=== PATIENT | female | born 1995 | race Caucasian/White ===

== ENCOUNTER 2017-09-08 14:00 | Emergency (ER) | payer OTHER ==
--- NOTE | 2017-09-08 15:06 | PD ---
HPI Chief Complaint Decreased movement Date Seen: Sep 08, 2017 Time Seen: 15:02 Travel History International Travel<30 Days: No Contact w/Intl Traveler<30Days: No Known Affected Area: No History of Present Illness HPI 21-year-old primigravida at 24 weeks gestation who reports no movement for the last 24 hours. She denies bleeding, leakage of fluid or abdominal pain. History Past Medical History Medical History: Denies Significant Hx Obstetric History Obstetric History Primigravida This complicated by first and second trimester bleeding Past Surgical History Surgical History: No Previous Surgery Family History Family History: Negative Social History Alcohol Use: No Tobacco Use: No Substance Abuse: No Review of Systems Except as stated in HPI: all other systems reviewed are Neg Physical Exam Narrative GENERAL: Well-nourished, well-developed patient. SKIN: Warm and dry. HEAD: Normocephalic and atraumatic. EYES: No scleral icterus. No injection or drainage. ENT: No nasal drainage noted. Mucous membranes pink. Airway patent. NECK: Supple, trachea midline. No JVD. CARDIOVASCULAR: Regular rate and rhythm without murmurs, gallops, or rubs. RESPIRATORY: Breath sounds equal bilaterally. No accessory muscle use. ABDOMEN/GI: Abdomen soft, non-tender, bowel sounds present, no rebound, no guarding Gravid to [-] weeks size Fundal Height: [-] GENITOURINARY: External Genitalia: intact and normal in appearance BUS glands: [-] Cervix: [-] Dilatation: [-] Effacement: [-] Station: [-] Presentation: [-] Membranes: [intact or ruptured] Uterine Contractions: [-] FHT's: Category: [-] Baseline: [145-] Reactive: [-] Variability: [mod-] Decels: [-] EXTREMITIES: No cyanosis or edema. BACK: Nontender without obvious deformity. No CVA tenderness. NEUROLOGICAL: Awake and alert. Motor and sensory grossly within normal limits. Five out of 5 muscle strength in all muscle groups. Normal speech. Data Data Vital Signs Reviewed: Yes MDM Medical Record Reviewed: Yes Narrative Course / MDM Assessment: 24 week intrauterine with decreased movement but reassuring heart rate Plan: Follow-up as needed. Diagnosis Diagnosis: Primary Impression: 24 weeks gestation of Additional Impression: Decreased movement affecting management of in second trimester Disposition: 01 DISCHARGE HOME Condition: Good Cristian Davis MD Sep 08, 2017 15:06
== END 2017-09-08 15:18 | disposition home or self-care (01) ==
LOC: HOBED 14:00
DX: O36.8130 Decreased fetal movements, third trimester, not applicable or unspecified (principal); Z3A.24 24 weeks gestation of pregnancy
CPT/HCPCS: 99282

== ENCOUNTER 2017-12-24 17:05 | Inpatient (IN) ==
[2017-12-24] MEDS ORDERED: Citric Acid/Sodium Citrate Liq 30 ML UDC PO SCH (17:30)
--- NOTE | 2017-12-24 17:36 | P.HPOB ---
History of Present Illness Primary Care Physician: NOT REQUIRED Dr. Peng Chief Complaint: Spotting and cramping History of Present Illness: Patient is 22-year-old white female at 39 weeks who sees the [facility] clinic and Dr. Peng and she is currently breech presentation scheduled for tomorrow but is coming today for cramping and spotting. Her NST is reactive she is having occasional contraction ultrasound in OB ED confirms breech presentation Weeks Gestation:: 39 Para: 0 : 1 Review of Systems Constitutional: Denies anorexia, Denies body ache(s), Denies chills, Denies daytime sleepiness, Denies excessive sweating, Denies fatigue, Denies fever(s), Denies headache(s), Denies increased appetite, Denies lack of energy, Denies malaise, Denies night sweats, Denies weakness, Denies weight gain, Denies weight loss, Denies other Cardiovascular: Denies bluish discoloration of hand/feet, Denies chest pain, Denies chest pain at rest, Denies chest pain with activity, Denies excessive sweating, Denies fainting, Denies fast heart rate, Denies foot swelling, Denies generalized swelling, Denies irregular heart rhythm, Denies leg pain with activity, Denies leg sores, Denies leg swelling, Denies lightheadedness, Denies radiating jaw, neck or arm pain, Denies rapid, pounding, or irregular heartbeat , Denies shortness of breath, Denies shortness of breath with activity, Denies shortness of breath when lying down, Denies shortness of breath causing sudden awakening, Denies slow heart rate, Denies other Respiratory: Denies change in phlegm color, Denies chest congestion, Denies cough, Denies coughing up blood, Denies excessive phlegm production, Denies pain on inspiration, Denies pain with cough, Denies shortness of breath, Denies shortness of breath with activity, Denies snoring, Denies stridor, Denies wheezing, Denies other Gastrointestinal: Reports abdominal pain, Denies belching, Denies black, tarry stools, Denies bloating, Denies bright, red blood in stools, Denies change in bowel habits, Denies constant urge to pass stool, Denies change in stools, Denies coffee ground vomit, Denies constipation, Denies cramping, Denies difficulty swallowing, Denies excessive passing of gas, Denies feeling full early, Denies heartburn, Denies incontinent of stools, Denies loose stools, Denies nausea, Denies pain with swallowing, Denies vomiting, Denies vomiting blood, Denies other Genitourinary: Reports abnormal vaginal bleeding, Denies abnormal periods, Denies absent period, Denies bleeding between periods, Denies blood in urine, Denies difficulty starting urination, Denies difficulty urinating, Denies dribbling after urination, Denies frequent nighttime urination, Denies genital itching, Denies genital lesions, Denies heavy periods, Denies hot flashes, Denies light periods, Denies nipple discharge, Denies painful intercourse, Denies painful periods, Denies painful urination, Denies pelvic pain, Denies prolapse symptoms, Denies sexual problems, Denies side pain, Denies urinary incontinence, Denies urinary urgency, Denies vaginal discharge, Denies vaginal dryness, Denies vaginal odor, Denies vaginal itching, Denies other Neurologic: Denies abnormal hearing, Denies abnormal movements, Denies abnormal speech, Denies abnormal walking, Denies behavioral changes, Denies burning sensations, Denies confusion, Denies dizziness, Denies fainting, Denies frequent falls, Denies headache(s), Denies lack of coordination, Denies localized weakness, Denies loss of vision, Denies memory loss, Denies numbness, Denies other visual disturbances, Denies radiating pain, Denies restless legs, Denies convulsions, Denies seizure-like activity, Denies sensory deficit, Denies tingling, Denies tingling/numbness/burning sensations, Denies tremor(s), Denies unsteadiness, Denies weakness, Denies other Hematologic/Lymphatic: Denies easy bleeding, Denies easy bruising, Denies enlarged lymph nodes, Denies other PMFSH - Tobacco History Second Hand Smoke Exposure: No Smoking Status: Never smoker - Alcohol History How Often Do You Have a Drink Containing Alcohol: Never - Substance Use History Substance History: No History of Abuse - Travel History History of Recent Travel: No Recent Travel in the [facility] Within the Last 8 Weeks: No Recent Travel Out of the Country Within the Last 8 Weeks: No Medications and Allergies Allergies Allergy/AdvReac Type Severity Reaction Status Date / Time No Known Allergies Allergy Unverified 12/24/17 17:14 Home Medications Medication Instructions Recorded Confirmed Type + DHA 11/09/17 History Exam Vital signs: Vital Signs 12/24/17 17:23 Temperature 99.3 F Respiratory Rate 18 Intake & Output 12/23/17 12/24/17 12/24/17 18:59 06:59 18:59 Weight 74.389 kg Narrative: GENERAL: Well-nourished, well-developed patient. SKIN: Warm and dry. HEAD: Normocephalic and atraumatic. EYES: No scleral icterus. No injection or drainage. ENT: No nasal drainage noted. Mucous membranes pink. Airway patent. NECK: Supple, trachea midline. No JVD. CARDIOVASCULAR: Regular rate and rhythm without murmurs, gallops, or rubs. RESPIRATORY: Breath sounds equal bilaterally. No accessory muscle use. BREASTS: Bilateral exam showed no masses , no retractions, no nipple discharge. ABDOMEN/GI: Abdomen soft, non-tender, bowel sounds present, no rebound, no guarding Gravid to [39-] weeks size Fundal Height: [38-] GENITOURINARY: External Genitalia: intact and normal in appearance BUS glands: [-] Cervix: [Posterior-] Dilatation: [-3] Effacement: [50-] Station: [-3] Presentation: [Breech-] Membranes: [intact ] Uterine Contractions: [Irregular-] FHT's: Category: [1-] Baseline: [133] Reactive: [-R] Variability: [-mod] Decels: [-] EXTREMITIES: No cyanosis or edema. BACK: Nontender without obvious deformity. No CVA tenderness. NEUROLOGICAL: Awake and alert. Motor and sensory grossly within normal limits. Five out of 5 muscle strength in all muscle groups. Normal speech. - Constitutional no acute distress - Routine HEENT Exam Head: Present: normocephalic, atraumatic Results - Imaging Bedside ultrasound confirms breech presentation Caprini VTE Risk Assessment Caprini VTE Risk Assessment: No/Low Risk (score <= 1) Caprini Risk Assessment Model: Point Value = 1 Point Value = 2 Point Value = 3 Point Value = 5 Age 41-60 Minor surgery BMI > 25 kg/m2 Swollen legs Varicose veins or History of unexplained or recurrent spontaneous Oral contraceptives or hormone replacement Sepsis (< 1 month) Serious lung disease, including pneumonia (< 1 month) Abnormal pulmonary function Acute myocardial infarction Congestive heart failure (< 1 month) History of inflammatory bowel disease Medical patient at bed rest Age 61-74 Arthroscopic surgery Major open surgery (> 45 min) Laparoscopic surgery (> 45 min) Malignancy Confined to bed (> 72 hours) Immobilizing plaster cast Central venous access Age >= 75 History of VTE Family history of VTE Factor V Leiden Prothrombin [id number] Lupus anticoagulant Anticardiolipin antibodies Elevated serum homocysteine Heparin-induced thrombocytopenia Other congenital or acquired thrombophilia Stroke (< 1 month) Elective arthroplasty Hip, pelvis, or leg fracture Acute spinal cord injury (< 1 month) Prophylaxis Regimen: Total Risk Factor Score Risk Level Prophylaxis Regimen 0-1 Low Early ambulation 2 Moderate Order ONE of the following: *Sequential Compression Device (SCD) *Heparin 5000 units SQ BID 3-4 Higher Order ONE of the following medications: *Heparin 5000 units SQ TID *Enoxaparin/Lovenox 40 mg SQ daily (WT < 150 kg, CrCl > 30 mL/min) *Enoxaparin/Lovenox 30 mg SQ daily (WT < 150 kg, CrCl > 10-29 mL/min) *Enoxaparin/Lovenox 30 mg SQ BID (WT < 150 kg, CrCl > 30 mL/min) AND/OR *Sequential Compression Device (SCD) 5 or more Highest Order ONE of the following medications: *Heparin 5000 units SQ TID (Preferred with Epidurals) *Enoxaparin/Lovenox 40 mg SQ daily (WT < 150 kg, CrCl > 30 mL/min) *Enoxaparin/Lovenox 30 mg SQ daily (WT < 150 kg, CrCl > 10-29 mL/min) *Enoxaparin/Lovenox 30 mg SQ BID (WT < 150 kg, CrCl > 30 mL/min) AND *Sequential Compression Device (SCD) Assessment and Plan - Diagnosis (1) 39 weeks gestation of Code(s): Z3A.39 - 39 weeks gestation of Status: Acute (2) Breech presentation Code(s): O32.1XX0 - Maternal care for breech presentation, not applicable or unspecified Status: Acute (3) Spotting affecting in third trimester Code(s): O26.853 - Spotting complicating , third trimester Status: Acute - Plan This primiparous patient at 39 weeks is breech presentation and having spotting and cramping. Her private OB physician wants to proceed with section for these conditions this evening will proceed
[2017-12-24 17:52] LABS: Baso % (Auto) 0.3 % (0.0-2.0); Hematocrit 34.7 % (35.0-46.0); Hemoglobin 11.6 gm/dL (11.6-15.3); Lymph # (Auto) 1.9 th/mm3 (1.0-4.8); Lymph % (Auto) 15.9 % (9.0-44.0); Mean Corpuscular HGB Conc 33.4 % (32.0-36.0); Mean Corpuscular Hemoglobin 29.7 pg (27.0-34.0); Mean Corpuscular Volume 89.1 fL (80.0-100.0); Mean Platelet Volume 9.3 fL (7.0-11.0); Mono # (Auto) 0.8 th/mm3 (0.0-0.9); Mono % (Auto) 6.5 % (0.0-8.0); Neut # (Auto) 9.3 th/mm3 (1.8-7.7); Neut % (Auto) 77.3 % (16.0-70.0); Platelet Count 260 th/mm3 (150-450); Red Blood Count 3.89 mil/mm3 (4.00-5.30); Red Cell Distribution Width 14.2 % (11.6-17.2); White Blood Count 12.1 th/mm3 (4.0-11.0)
[2017-12-24] MEDS ORDERED: Acetaminophen 325 MG Tablet PO PRN (17:58)
[2017-12-24] MEDS ORDERED: Oxytocin 30 Units/500ml Premix 30 UNITS/500 ML BAG IV.SIG ONE (17:58)
[2017-12-24] MEDS ORDERED: ceFAZolin Inj 2,000 MG in Sodium Chlor 0.9% Inj 80 ML IV.SIG SCH (18:00)
[2017-12-24] MEDS ORDERED: Morphine Sulfate PF Inj 5 MG/10 ML Ampul ONE (18:06)
[2017-12-24 18:07] LABS: Bilirubin,Urine Negative (Negative); Clarity,Urine Hazy (Clear); Color,Urine Straw (Yellw/Straw); Glucose,Urine (UA) Negative (Negative); Leukocyte Esterase,Urine Trace (Negative); Nitrite,Urine Negative (Negative); Specific Gravity,Urine 1.002 (1.002-1.035); Squamous Epithelial Cell,Urine 2 /hpf (0-5)
[2017-12-24 18:11] LABS: Amphetamine Screen,Urine Neg (Neg); Barbiturate Screen,Urine Neg (Neg); Cannabinoid Screen,Urine Neg (Neg); Cocaine Screen,Urine Neg (Neg)
[2017-12-24 18:12] LABS: Opiate Screen,Urine Neg (Neg)
[2017-12-24 18:39] LABS: Anion Gap 9 meq/L (5-15); Aspartate Aminotransferase 22 U/L (15-37); Blood Urea Nitrogen 7 mg/dL (7-18); Calcium 8.9 mg/dL (8.5-10.1); Carbon Dioxide 23.1 meq/L (21.0-32.0); Chloride 108 meq/L (98-107); Glomerular Filtration Rate Greater Than 89 mL/min (>89); Glucose,Random 83 mg/dL (74-106); Potassium 3.8 meq/L (3.5-5.1); Sodium 140 meq/L (136-145)
[2017-12-24 18:40] LABS: Alanine Aminotransferase 17 U/L (10-53)
[2017-12-24 18:42] LABS: Alkaline Phosphatase 110 U/L (45-117); Total Protein 7.3 g/dL (6.4-8.2)
--- NOTE | 2017-12-24 19:07 | P.OBDELI ---
Procedure Note Performed by: Cristian Arceo MD Procedure: Primary Low Transverse Section Indication for Delivery: malposition (footling breech) Informed Consent Obtained: For anesthesia, For procedure Confirmed Correct: Patient, Procedure, Site, Time-out taken Anesthesia: Spinal Medication Prior to Procedure: As documented in eMAR Monitoring During Procedure: Blood pressure monitoring, surveillance monitor, doppler, Pulse oximetry Urinary Catheter: Inserted using sterile technique, To dependent drainage Sterile Preparation: Duraprep, In usual fashion Position: Supine with wedge to right side, Supine with safety belt applied - Operative Features Skin Incision: Pfannenstiel Uterine Incision: Low transverse w/knife / scissors Membranes Ruptured: Artificially, Appearance of fluid (clear) Presentation: Breech Status of Infant: Viable, Cord blood, Umbilical cord, Nursery present, Resuscitation required Placenta Delivered: Intact Medications: Antibiotics, Oxytocin Estimated blood loss (mL): 650 Procedure Tolerated: Well Maternal Condition: Stable Baby Condition: Stable - : Female Infant Delivery Date: 12/24/17 Infant Delivery Time: 18:33 Weight: 3370 kg score (1 min): 6 score (5 min): 7
[2017-12-24 19:18] LABS: Cord Arterial Blood HCO3 22.9
--- NOTE | 2017-12-24 20:04 | MP ---
cc: Cristian Arceo MD DATE OF OPERATION: 12/24/2017 PREOPERATIVE DIAGNOSES: Term intrauterine , double footling breech, active labor unexplained vaginal bleeding, tachycardia. PROCEDURE PERFORMED: Primary low transverse section with breech extraction delivery of a female infant. POSTOPERATIVE DIAGNOSES: Term intrauterine , double footling breech, active labor unexplained vaginal bleeding, tachycardia. SURGEON: Cristian Arceo MD ANESTHESIA: Spinal. ESTIMATED BLOOD LOSS: 650 mL. DRAINS: Montoya to gravity. OPERATIVE FINDINGS: Female infant delivered by breech extraction. Clear fluid. No nuchal cord entanglement. Intact placenta. Apgars were 6 at one minute and 7 at five. Baby required minimal resuscitation by the NICU staff. INDICATIONS FOR PROCEDURE: The patient was scheduled previously for an elective primary section due to breech presentation on 10/24/2017. She presented with active labor and vaginal bleeding. Cervix was 3 cm. Contractions were irregular and moderate. tachycardia was documented and the patient's blood pressure was slightly elevated. The patient was elected for operative delivery by section. She received Ancef 2 grams prophylactically. PROCEDURE DESCRIPTION: The patient was taken to the operating room in stable condition. She underwent spinal anesthetic with good results. She had 2 grams of Ancef given IV. She was prepped and draped. Montoya was inserted by sterile technique. Sequentials were placed on the lower extremities for VTE prophylaxis. Timeout was conducted, agreed by all present in the room. The patient was prepped and draped. She had excellent pain control and was alert and awake throughout the procedure. A Pfannenstiel incision was utilized. It was carried through a slightly elliptical incision just above the pubic symphysis and carried through the skin and subcutaneous layers, identifying the fascia, and then scoring the fascia sharply in the midline and extending it sharply by elevating the fascia with Leonila clamps. The fascia was dissected from the rectus muscle. The muscle was in the midline. Peritoneum was entered sharply without difficulty. The incision was extended bluntly and then the bladder blade was placed over the pubic symphysis. A transverse incision was made in the lower uterine segment with reduction of the peritoneum underneath the bladder blade. Clear fluid was noted. Double footling breech identified. The was delivered without incident and then the cord was doubly clamped and cut. No delayed cord clamping was done. The was taken to the [facility] immediately by the nursery. A cord segment was obtained for cord blood gas. A cord sample was obtained for typing and then the placenta was removed intact with trailing membranes. The uterus was explored. There was no retained tissue. The uterus was rohan nicely. Hemostasis was excellent. The uterus was closed with a double layer. First was a running locking suture of 0 Monocryl, followed by a second imbricating suture of 0 Monocryl. The pelvis was irrigated. Any active bleeding, blood clot or fluid was retrieved and dried. Again, confirmation of hemostasis was noted and then the peritoneal layer was closed with a running suture of 2-0 Monocryl. The muscle bellies were reapproximated loosely in the midline with a mattress suture of 2-0 Monocryl. The fascia was then closed with 0 Vicryl in a good simple fashion with good result and then the subcutaneous space was dried, irrigated and observed for any active bleeding. Any small bleeding was cauterized with the Bovie and the space was reapproximated with a running suture of 2-0 Monocryl. Yoni were used to close the skin. Dressing was applied. The final counts were correct. The patient was stable. Infant was stable. MD MIRNA Colon/jason , 07:12 PM , 07:19 PM
[2017-12-24] MEDS ORDERED: Oxytocin 30 Units/500ml Premix 30 UNITS/500 ML BAG IV.SIG PRN (22:59)
[2017-12-25] MEDS ORDERED: Naloxone Inj 0.4 MG/ML Vial IV.PUSH PRN (02:42)
[2017-12-25 05:51] LABS: Baso % (Auto) 0.2 % (0.0-2.0); Hematocrit 29.2 % (35.0-46.0); Hemoglobin 9.7 gm/dL (11.6-15.3); Lymph # (Auto) 1.4 th/mm3 (1.0-4.8); Lymph % (Auto) 10.5 % (9.0-44.0); Mean Corpuscular HGB Conc 33.2 % (32.0-36.0); Mean Corpuscular Hemoglobin 29.9 pg (27.0-34.0); Mean Corpuscular Volume 89.9 fL (80.0-100.0); Mean Platelet Volume 9.4 fL (7.0-11.0); Mono # (Auto) 0.7 th/mm3 (0.0-0.9); Mono % (Auto) 4.8 % (0.0-8.0); Neut # (Auto) 11.6 th/mm3 (1.8-7.7); Neut % (Auto) 84.5 % (16.0-70.0); Platelet Count 189 th/mm3 (150-450); Red Blood Count 3.25 mil/mm3 (4.00-5.30); Red Cell Distribution Width 13.8 % (11.6-17.2); White Blood Count 13.7 th/mm3 (4.0-11.0)
--- NOTE | 2017-12-25 09:09 | P.PNOB ---
Subjective Post op day: 1 Interval history: s/p primary LTCD for breech/labor Objective Vital Signs/I&O: Vital Signs 12/24/17 17:23 12/24/17 17:25 12/24/17 17:56 Temperature 99.3 F Pulse Rate 114 H 112 H Respiratory Rate 18 Blood Pressure 160/79 H 137/82 12/24/17 19:23 12/24/17 19:40 12/24/17 19:55 Temperature 97.7 F 97.4 F L Pulse Rate 112 H 83 89 Respiratory Rate 20 20 18 Blood Pressure 130/60 125/65 119/56 L 12/24/17 20:10 12/24/17 21:25 12/25/17 00:00 Temperature 99.9 F H 99.6 F Pulse Rate 105 H 98 H 80 Respiratory Rate 18 18 18 Blood Pressure 129/74 139/75 150/82 H 12/25/17 03:58 12/25/17 08:00 Temperature 100.0 F H 98.5 F Pulse Rate 83 77 Respiratory Rate 18 18 Blood Pressure 144/78 H 128/75 Intake & Output 12/24/17 12/25/17 12/25/17 18:59 06:59 18:59 Weight 74.389 kg Result Diagrams: 12/25/17 05:06 12/24/17 17:30 Objective Remarks: Pt in NICU with . GENERAL: Well-nourished, well-developed patient. CARDIOVASCULAR: Regular rate and rhythm without murmurs, gallops, or rubs. RESPIRATORY: Breath sounds equal bilaterally. No accessory muscle use. ABDOMEN/GI: Abdomen soft, non-tender, bowel sounds present. Incision: bandage in place; clean & dry Fundus: Firm, non-tender at umbilicus. GENITOURINARY: Light to moderate bleeding. EXTREMITIES: No cyanosis or edema, non-tender, without signs of DVT. Medications and IVs: Active Medications Acetaminophen (Tylenol) 650 mg PO Q6H PRN PRN Reason: PAIN SCALE 1 TO 2 Citric Acid/Sodium Citrate (Sodium Citrate/Citric Acid Liq) 30 ml PO [employer] MACHIN[employer] TRACEY Stop: 12/28/17 17:29 Diphenhydramine HCl (Benadryl) 50 mg PO Q6H PRN PRN Reason: MILD TO MODERATE ITCHING Stop: 12/26/17 02:41 Diphenhydramine HCl (Benadryl Inj) 25 mg IV.PUSH Q6H PRN PRN Reason: MILD TO MODERATE ITCHING Stop: 12/26/17 02:41 Diphtheria/Pertussis/Tetanus Vacc (Boostrix Vaccine Inj) 0.5 ml IM .ONCE ONE Stop: 12/25/17 16:01 Cefazolin Sodium 2,000 mg/ (Sodium Chloride) 100 mls @ 200 mls/hr IV.SIG [employer] MACHINIST TRACEY Stop: 12/28/17 17:59 Lactated Ringer's (Lr 1000 Ml Inj) 1,000 mls @ 100 mls/hr IV.CONT .Q10H [facility] Stop: 12/25/17 18:58 Last Admin: 12/25/17 00:02 Dose: 100 mls/hr Oxytocin (Pitocin 30 Units/Ns 500 Ml Premix) 30 units in 500 mls @ 100 mls/hr IV.SIG UNSCH PRN PRN Reason: Heavy bleeding Ibuprofen (Motrin) 800 mg PO Q8H PRN PRN Reason: cramping Last Admin: 12/25/17 06:26 Dose: 800 mg Ketorolac Tromethamine (Toradol Inj) 30 mg IM Q6H PRN PRN Reason: SEE LABEL COMMENTS Measles/Mumps/Rubella Vaccine Live (M-M-R Ii Vaccine Inj) 0.5 ml SQ .ONCE ONE Stop: 12/25/17 16:01 Miscellaneous Information (Misc Nursing Information) 1 each OTHER UNSCH PRN PRN Reason: SEE LABEL COMMENTS Stop: 12/26/17 02:41 Miscellaneous Information ([facility] Nursing Information) 1 each OTHER UNSCH PRN PRN Reason: SEE LABEL COMMENTS Stop: 12/26/17 02:41 Naloxone HCl (Narcan Inj) 0.4 mg IV.PUSH UNSCH PRN PRN Reason: SEE LABEL COMMENTS Stop: 12/26/17 02:41 Ondansetron HCl (Zofran Inj) 4 mg IV.PUSH Q6H PRN PRN Reason: NAUSEA OR VOMITING Oxycodone/Acetaminophen (Percocet 5/325 Mg) 2 tab PO Q4H PRN PRN Reason: PAIN SCALE 6 TO 10 Oxycodone/Acetaminophen (Percocet 5/325 Mg) 1 tab PO Q4H PRN PRN Reason: PAIN SCALE 3 TO 5 Senna/Docusate Sodium (Diane-Colace) 2 tab PO Q12H PRN PRN Reason: CONSTIPATION Simethicone (Mylicon Chew) 80 mg PO QID PRN PRN Reason: FLATULENCE Sodium Chloride (Ns Flush) 2 ml IV.FLUSH BID TRACEY Last Admin: 12/25/17 01:30 Dose: Not Given Sodium Chloride (Ns Flush) 2 ml IV.FLUSH PRN PRN PRN Reason: FLUSH AFTER USING IV ACCESS Assessment and Plan - Diagnosis (1) S/P primary low transverse Code(s): Z98.891 - History of uterine scar from previous surgery Status: Acute (2) Breech presentation Code(s): O32.1XX0 - Maternal care for breech presentation, not applicable or unspecified Status: Acute - Plan POD#1 s/p primary LTCD with Dr. Arceo for footling breech in labor - routine PP/postop care, encourage shower, remove bandage, ambulate - infant in NICU for respiratory distress; pt visiting now - anticipate d/c in 1-2d Discharge Plannin-3d postop
[2017-12-25] MEDS ORDERED: Measles/Mumps/Rubella Vaccine Inj 0.5 ML Vial SQ ONE (16:00)
[2017-12-25] MEDS ORDERED: Diphtheria/Tetanus/Pertussis Vaccine Inj 0.5 ML Syringe IM ONE (16:00)
[2017-12-25] MEDS: Senna/Docusate Sodium 8.6/50 MG Tablet PO PRN (22:24)
--- NOTE | 2017-12-26 06:54 | P.PNOB ---
Subjective Post op day: 2 Interval history: doing well, ambulating, voiding without difficulty. Baby in nicu until tonight Objective Vital Signs/I&O: Vital Signs 12/25/17 08:00 12/25/17 12:15 12/25/17 20:00 Temperature 98.5 F 98.1 F 98.2 F Pulse Rate 77 70 78 Respiratory Rate 18 Blood Pressure 128/75 144/71 H 139/81 Result Diagrams: 12/25/17 05:06 12/24/17 17:30 Objective Remarks: GENERAL: Well-nourished, well-developed patient. CARDIOVASCULAR: Regular rate and rhythm without murmurs, gallops, or rubs. RESPIRATORY: Breath sounds equal bilaterally. No accessory muscle use. ABDOMEN/GI: Abdomen soft, non-tender, bowel sounds present. Incision: Clean, dry and intact. Fundus: Firm, non-tender at umbilicus. GENITOURINARY: Light to moderate bleeding. EXTREMITIES: No cyanosis, tr edema, non-tender, without signs of DVT. Medications and IVs: Active Medications Acetaminophen (Tylenol) 650 mg PO Q6H PRN PRN Reason: PAIN SCALE 1 TO 2 Hydrocodone Bitart/Acetaminophen ([place] 5/325) 2 tab PO Q4H PRN PRN Reason: PAIN SCALE 6 TO 10 Last Admin: 12/25/17 22:25 Dose: 2 tab Hydrocodone Bitart/Acetaminophen ([place] 5/325) 1 tab PO Q4H PRN PRN Reason: PAIN SCALE 3 TO 5 Last Admin: 12/26/17 04:42 Dose: 1 tab Citric Acid/Sodium Citrate (Sodium Citrate/Citric Acid Liq) 30 ml PO CHASSIS WIRER [facility] Stop: 12/28/17 17:29 Cefazolin Sodium 2,000 mg/ (Sodium Chloride) 100 mls @ 200 mls/hr IV.SIG CHASSIS WIRER TRACEY Stop: 12/28/17 17:59 Ibuprofen (Motrin) 800 mg PO Q8H PRN PRN Reason: cramping Last Admin: 12/25/17 23:53 Dose: 800 mg Ketorolac Tromethamine (Toradol Inj) 30 mg IM Q6H PRN PRN Reason: SEE LABEL COMMENTS Ondansetron HCl (Zofran Inj) 4 mg IV.PUSH Q6H PRN PRN Reason: NAUSEA OR VOMITING Last Admin: 12/25/17 16:25 Dose: 4 mg Ondansetron HCl (Zofran Odt) 4 mg PO Q4H PRN PRN Reason: NAUSEA Last Admin: 12/26/17 04:43 Dose: 4 mg Senna/Docusate Sodium (Diane-Colace) 2 tab PO Q12H PRN PRN Reason: CONSTIPATION Last Admin: 12/25/17 22:24 Dose: 2 tab Simethicone (Mylicon Chew) 80 mg PO QID PRN PRN Reason: FLATULENCE Sodium Chloride (Ns Flush) 2 ml IV.FLUSH BID TRACEY Last Admin: 12/25/17 21:39 Dose: Not Given Sodium Chloride (Ns Flush) 2 ml IV.FLUSH PRN PRN PRN Reason: FLUSH AFTER USING IV ACCESS Assessment and Plan - Diagnosis (1) S/P primary low transverse Code(s): Z98.891 - History of uterine scar from previous surgery Status: Acute (2) Breech presentation Code(s): O32.1XX0 - Maternal care for breech presentation, not applicable or unspecified Status: Acute - Plan POD#2 s/p primary LTCD with Dr. Arceo for footling breech in labor - routine PP/postop care, encourage shower, remove bandage, ambulate - infant in NICU for respiratory distress; pt visiting now - anticipate d/c tomorrow Discharge Plannin-3d postop
[2017-12-26] MEDS: Simethicone 80 MG Chew Tablet PO PRN ×2 (08:51→18:52)
[2017-12-26] MEDS: Senna/Docusate Sodium 8.6/50 MG Tablet PO PRN ×2 (08:51→22:50)
[2017-12-26 23:57] VITALS: RESP 18
--- NOTE | 2017-12-27 08:20 | P.PNOB ---
Subjective Post op day: 3 Interval history: no HILL, no BV, no CP, +BM, ready to go home Objective Vital Signs/I&O: Vital Signs 12/26/17 20:00 12/26/17 21:20 12/26/17 23:56 Temperature 98.9 F 98.1 F Pulse Rate 101 H 84 103 H Respiratory Rate 16 20 18 Blood Pressure 155/75 H 154/81 H 157/88 H 12/27/17 04:00 Temperature 98.2 F Pulse Rate 96 H Respiratory Rate 18 Blood Pressure 151/85 H Result Diagrams: 12/25/17 05:06 12/24/17 17:30 Objective Remarks: GENERAL: Well-nourished, well-developed patient. CARDIOVASCULAR: Regular rate and rhythm without murmurs, gallops, or rubs. RESPIRATORY: Breath sounds equal bilaterally. No accessory muscle use. ABDOMEN/GI: Abdomen soft, non-tender, bowel sounds present. Incision: Clean, dry and intact. Fundus: Firm, non-tender at umbilicus. GENITOURINARY: Light to moderate bleeding. EXTREMITIES: No cyanosis or edema, non-tender, without signs of DVT. Medications and IVs: Active Medications Acetaminophen (Tylenol) 650 mg PO Q6H PRN PRN Reason: PAIN SCALE 1 TO 2 Hydrocodone Bitart/Acetaminophen (Dudley 5/325) 2 tab PO Q4H PRN PRN Reason: PAIN SCALE 6 TO 10 Last Admin: 12/25/17 22:25 Dose: 2 tab Hydrocodone Bitart/Acetaminophen (Dudley 5/325) 1 tab PO Q4H PRN PRN Reason: PAIN SCALE 3 TO 5 Last Admin: 12/27/17 02:46 Dose: 1 tab Citric Acid/Sodium Citrate (Sodium Citrate/Citric Acid Liq) 30 ml PO LIQUOR TESTER TRACEY Stop: 12/28/17 17:29 Cefazolin Sodium 2,000 mg/ (Sodium Chloride) 100 mls @ 200 mls/hr IV.SIG LIQUOR TESTER TRACEY Stop: 12/28/17 17:59 Ibuprofen (Motrin) 800 mg PO Q8H PRN PRN Reason: cramping Last Admin: 12/27/17 02:45 Dose: 800 mg Ketorolac Tromethamine (Toradol Inj) 30 mg IM Q6H PRN PRN Reason: SEE LABEL COMMENTS Ondansetron HCl (Zofran Inj) 4 mg IV.PUSH Q6H PRN PRN Reason: NAUSEA OR VOMITING Last Admin: 12/25/17 16:25 Dose: 4 mg Ondansetron HCl (Zofran Odt) 4 mg PO Q4H PRN PRN Reason: NAUSEA Last Admin: 12/27/17 02:46 Dose: 4 mg Senna/Docusate Sodium (Diane-Colace) 2 tab PO Q12H PRN PRN Reason: CONSTIPATION Last Admin: 12/26/17 22:50 Dose: 2 tab Simethicone (Mylicon Chew) 80 mg PO QID PRN PRN Reason: FLATULENCE Last Admin: 12/26/17 18:52 Dose: 80 mg Sodium Chloride (Ns Flush) 2 ml IV.FLUSH BID TRACEY Last Admin: 12/26/17 22:50 Dose: Not Given Sodium Chloride (Ns Flush) 2 ml IV.FLUSH PRN PRN PRN Reason: FLUSH AFTER USING IV ACCESS Assessment and Plan - Diagnosis (1) S/P primary low transverse Code(s): Z98.891 - History of uterine scar from previous surgery Status: Acute (2) Breech presentation Code(s): O32.1XX0 - Maternal care for breech presentation, not applicable or unspecified Status: Acute - Plan POD#3 s/p primary LTCD with Dr. Arceo for footling breech in labor - routine PP/postop care, - anticipate d/c today Discharge Plannin-3d postop - Attending Attestation pt seen by me
[2017-12-27 08:42] VITALS: BP 139/75; PULSE 82; TEMP 98.3
== END 2017-12-27 13:20 | disposition home or self-care (01) ==
LOC: HOBED 17:05 → H2E 17:31 → H1EA 21:45
PROVIDERS: ADMIT Obstetrics & Gynecology; ATTEND Obstetrics & Gynecology